=== PATIENT | female | born 1940 | race Caucasian/White ===

== ENCOUNTER 2023-11-21 15:26 | Emergency (ER) | payer MEDICARE, OTHER, SELFPAY ==
--- NOTE | ~2023-11-21 | XR_ITS ---
EXAMINATION: XR wrist RT min 3V DATE: 11/21/2023 15:50 INDICATION: Right wrist deformity post fall TECHNIQUE: Posteroanterior, ulnar deviation, oblique, and lateral views of the right wrist were obtai noe. COMPARISON: none FINDINGS: Diffuse osteopenia. Comminuted fractures of the distal right radius with 2 mm posterior displacement and moderate posterior angulation resulting in 35 degrees dorsal tilt of the distal articular surface at the transverse fracture across the metaphyseal region. There is a subtle linear lucency consisten t with nondisplaced intra-articular fracture plane extending to the scaphoid fossa. Minimally displac ed extra-articular fracture at the neck of the distal ulna. No other fractures identified. Advanced o steoarthritis at the first carpometacarpal joint. Moderate osteoarthritis at the triscaphe joint and several of the remaining metacarpophalangeal and interphalangeal joints. IMPRESSION: 1. Prominent dorsal angulation of a comminuted intra-articular fracture of the distal right radius wi th no significant fracture gap or incongruity at the articular surface. 2. Minimally displaced extra articular fracture at the neck of the distal ulna. 3. 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 Reviewed, dictated and finalized at location A. SUPERVISOR IMPRESSION: 1. Prominent dorsal angulation of a comminuted intra-articular fracture of the distal right radius with no significant fracture gap or incongruity at the tae cular surface. 2. Minimally displaced extra articular fracture at the neck of the distal ulna. 3. 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
--- NOTE | ~2023-11-21 | XR_ITS ---
EXAM: XR wrist RT 2V DATE: 11/21/2023 20:33 HISTORY: post reduction . COMPARISON: Same date at 3:48 PM. FINDINGS: Cast material obscures osseous detail. Severe osteopenia. Redemonstration of the comminute d intra-articular distal right radial fracture, improved alignment, residual 2 mm posterior displacem ent and 7 degree posterior angulation. Redemonstration of the extra-articular distal right ulnar frac ture, with minimal medial and posterior angulation IMPRESSION: Distal right radial and ulnar fractures status post reduction and cast placement. There i s mild residual posterior displacement and angulation of the radial fracture. Reviewed, dictated and finalized at location K. TO PEELER IMPRESSION: Distal right radial and ulnar fractures status post reduction and c ast placement. There is mild residual posterior displacement and angulation of the radial fracture.
[2023-11-21 15:28] VITALS: BP 127/100; PULSE 68; RESP 18; TEMP 37; O2SAT 94
--- NOTE | 2023-11-21 18:15 | ED.UPPEXIN ---
HPI - Extremity Injury (Upper) General Chief Complaint: Extremity Injury, Upper Stated Complaint: wrist pain Time Seen by Provider: 11/21/23 18:01 History of Present Illness HPI narrative: 83-year-old female presents with his daughter at bedside for right wrist pain and injury. Patient states she bent over to pick something up off of the ground and when she stood up she took a few steps back, tripped and fell backwards. States she landed on her bottom with her right wrist extended behind her. Denies hitting her head, loss of consciousness, neck pain or back pain, other injuries acquired. Related Data Home Medications Medication Instructions Recorded Confirmed apixaban 5 mg tablet (Eliquis) mg 11/21/23 furosemide 20 mg tablet mg 11/21/23 metoprolol tartrate 25 mg tablet mg 11/21/23 montelukast 10 mg tablet mg 11/21/23 pantoprazole 20 mg tablet,delayed mg PO 11/21/23 release paroxetine HCl 20 mg tablet mg PO 11/21/23 potassium chloride 10 mEq meq PO 11/21/23 tablet,extended release sacubitril 24 mg-valsartan 26 mg tablet 11/21/23 tablet (Entresto) simvastatin 40 mg tablet mg 11/21/23 Allergies Allergy/AdvReac Type Severity Reaction Status Date / Time Penicillins Allergy Unknown Hives Verified 11/21/23 15:27 Sulfa (Sulfonamide Allergy Unknown Hives Verified 11/21/23 15:27 Antibiotics) Review of Systems Review of Systems: CONSTITUTIONAL: Denies fever, chills, or sweats. EYES: Denies visual changes, redness, or discharge. ENT: Denies rhinorrhea, congestion, sore throat, or otalgia. CARDIOVASCULAR: Denies chest pain, palpitations, or edema. RESPIRATORY: Denies cough or dyspnea. GASTROINTESTINAL: Denies abdominal pain, nausea, vomiting, or diarrhea. GENITOURINARY: Denies dysuria or hematuria. SKIN: Denies rash or itching. MUSCULOSKELETAL: Lilian HPI NEUROLOGIC: Denies headache, numbness, or weakness. PSYCHIATRIC: Denies anxiety or depression. Exam Narrative: GENERAL: Well-appearing, well-nourished, and in no acute distress. HEAD: Normocephalic, atraumatic. EYES: PERRLA and EOMI. ENT: Nares clear, no rhinorrhea or epistaxis. Mucous membranes moist. NECK: Supple. No midline cervical spinous tenderness, step-offs or deformities. BACK: No midline thoracolumbar spinous tenderness, step-offs or deformities. CHEST: Clear to auscultation. No respiratory distress. HEART: Regular rate and rhythm. No murmur heard. Normal peripheral pulses. ABDOMEN: Soft, nontender, nondistended, normal active bowel sounds. EXTREMITIES: RUE: Tenderness and obvious deformity to the distal radius and ulna with dorsal angulation. No tenderness to metacarpals or fingers. Negative snuffbox tenderness. Patient able to move all fingers and sensation intact throughout. Radial pulse 2 +. Cap refill less than 2. No tenderness remainder of upper lower extremities bilaterally. SKIN: Warm, dry, no rash. NEURO: No focal deficits. Alert and oriented x3 Course Vital Signs Vital signs: Vital Signs Temperature 98.6 F 11/21/23 15:28 Pulse Rate 68 11/21/23 15:28 Respiratory Rate 18 11/21/23 15:28 Blood Pressure 127/100 H 11/21/23 15:28 Pulse Oximetry 94 11/21/23 15:28 Oxygen Delivery Room Air 11/21/23 15:28 Temperature 98.6 F 11/21/23 15:28 Pulse Rate 85 11/21/23 21:41 Respiratory Rate 16 11/21/23 21:41 Blood Pressure 137/86 11/21/23 21:41 Pulse Oximetry 97 11/21/23 21:41 Oxygen Delivery Room Air 11/21/23 15:28 Procedures Orthopedic Fracture Reduction Fracture #1: Fracture Reduction date: 11/21/23 Fracture Reduction time: 20:32 Time Out Performed: Yes Side: right Fracture Reduction Location: radius and ulna Analgesia: hematoma block Pre-Procedure Neuro Vascular Exam: normal Technique: direct manipulation Post Reduction X-rays Demonstrate: acceptable reduction Post-reduction neuro exam: intact Post-reductio
--- NOTE | 2023-11-21 19:10 | PC.NURSE ---
Assumed care of pt. Awaiting reduction. No needs at this time.
--- NOTE | 2023-11-21 21:40 | PC.NURSE ---
Pt declined Tramadol dose. States is not in pain at this time. Discussed pharmaceutical and nonpharmaceutical ways to help pain until pharmacy opens.
[2023-11-21 21:41] VITALS: BP 137/86; PULSE 85; RESP 16; O2SAT 97
== END 2023-11-21 21:42 | disposition home or self-care (01) ==
PROVIDERS: Emergency Provider Physician Assistant
DX: S52.571A Other intraarticular fracture of lower end of right radius, initial encounter for closed fracture (principal); S52.691A Other fracture of lower end of right ulna, initial encounter for closed fracture; Z79.01 Long term (current) use of anticoagulants; W01.0XXA Fall on same level from slipping, tripping and stumbling without subsequent striking against object, initial encounter
CPT/HCPCS: 25565; 25605; 73100; 73110; 99285; A4565

== ENCOUNTER 2023-12-11 08:52 | Emergency (ER) | payer MEDICARE, OTHER, SELFPAY ==
[2023-12-11] VITALS (37 sets, daily range): BP systolic 49–124; BP diastolic 20–98; PULSE 0–160; RESP 9–48; TEMP 36.4–37.2; O2SAT 70–100
--- NOTE | ~2023-12-11 | CT_ITS ---
EXAMINATION: CT chest abdomen pelvis w con DATE: 12/11/2023 12:04 INDICATION: Sepsis TECHNIQUE: Computed tomography (CT) of the chest, abdomen, and pelvis was performed with 100 CC Omnip aque 350 intravenous contrast. Automated exposure control and iterative reconstruction technique were employed. Exam dose: 911.73 mGy-cm total exam DLP. COMPARISON: 12/11/2023 portable AP chest FINDINGS: CHEST CT: There is prominent cardiomegaly. No pericardial effusion. There is thoracic aortic, great vessel and coronary artery calcification. No thoracic aortic aneurysm. No hilar or mediastinal mass lesion or lymphadenopathy is evident. There is dependent infiltrate or atelectasis at the left upper lobe and prominent left lower lobe ate lectasis/infiltrate. There is dependent right lower lobe atelectasis. Mild bilateral pleural effusions. Very large hiatal hernia. ABDOMEN/PELVIS CT: Status post cholecystectomy. No bile duct or pancreatic duct dilatation. Pancreatic atrophy. No pancr eatic mass lesion or calcification. No hepatic or splenic space-occupying mass lesion is detected. Normal morphology of the adrenal glands. Mild right adrenal gland calcification. There are several cy sts of each kidney are noted including one larger exophytic cyst in particular at the left kidney pos teriorly, measuring up to 3.3 cm. No urinary tract calculus or hydroureteronephrosis. There is a James catheter within the completely e vacuated urinary bladder. The uterus and adnexal areas appear unremarkable. Atherosclerotic calcification but normal caliber of the abdominal aorta and iliac arteries. There is a catheter in the right femoral vein, terminating in the right external iliac vein No intraperitoneal or retroperitoneal or pelvic mass lesion or adenopathy or ascites. Diverticulosis of the colon. There is prominent fecal material in the colon. No bowel obstruction, jarad wel wall thickening, pneumatosis or intraperitoneal free air.. Prominent osteoarthritis at the glenohumeral joints. Prominent degenerative disc disease at the included C5-6 and C6-7. Approximate 4 mm anterolisthesis a t C6-7. Dextroscoliosis of the thoracic spine and levoscoliosis of the lumbar spine. Mild likely chronic anterior wedging at T3 Severe burst fracture deformity at T12. Moderate biconcave compression deformity and vertebroplasty at L5. Multilevel degenerative disc disease, most pronounced at L2-3 and L3-4. Prominent degenerative change at the lumbar apophyseal joints. Osteopenia. Intramedullary pin and interlocking compression screw of proximal left femur. IMPRESSION: Prominent cardiomegaly Dependent left upper lobe and right lower lobe infiltrate or atelectasis. More prominent left lower l obe infiltrate and/or atelectasis Mild bilateral pleural effusions Very large hiatal hernia Status post cholecystectomy Bilateral renal cysts Severe burst fracture deformity at T12 Mild anterior wedge compression fracture T3 Moderate biconcave compression fracture and vertebroplasty at L5 Reviewed, dictated and finalized at [facility]. Reviewed, dictated and finalized at location A. IMPRESSION: Prominent cardiomegaly Dependent left upper lobe and right lower lobe infiltrate or atelectasis. More prominent left lower lobe infiltrate and/or atelectasis Mild bilateral pleural effusions Very large hiatal hernia Status post cholecystectomy Bilateral renal cysts Severe burst fracture deformity at T12 Mild anterior wedge compression fracture T3 Moderate biconcave compression fracture and vertebroplasty at L5
--- NOTE | ~2023-12-11 | CT_ITS ---
EXAMINATION: CT brain wo con DATE: 12/11/2023 12:04 INDICATION: Confusion, sepsis TECHNIQUE: Computed tomography (CT) of the head was performed without intravenous contrast. The mA wa s adjusted according to patient size. Iterative reconstruction technique was employed. Exam dose: 10 59.33 mGy-cm total exam DLP. COMPARISON: None FINDINGS: Examination is very limited due to prominent motion artifact. No apparent intracranial mass lesion or hemorrhage, midline shift or mass effect or subdural or epidu ral hematoma is detected. Bilateral hyperostosis frontalis interna, not likely of clinical significan ce. No skull fracture or bone destruction is evident. The mastoid air cells and paranasal sinuses patricia ear well-developed and aerated. IMPRESSION: Limited examination due to motion artifact; no gross acute intracranial finding Reviewed, dictated and finalized at [facility]. Reviewed, dictated and finalized at location A. IMPRESSION: Limited examination due to motion artifact; no gross acute intracr anial finding
--- NOTE | ~2023-12-11 | XR_ITS ---
XR chest 1V portable DATE: 12/11/2023 09:09 INDICATION: Altered mental status. History of COPD and hypertension. TECHNIQUE: Portable AP chest on 12/11/2023 at 0907 hours COMPARISON: 09/03/2013 two-view chest FINDINGS: This is a limited rotated single portable AP view. Cardiomegaly. Aortic arch calcification. There is increased retrocardiac density consistent with left lower lobe atelectasis/or consolidation. There is patchy infiltrate and/or atelectasis in the right lower lung. Left costophrenic angle is obscured. Left pleural effusion is not excluded. Cannot exclude of small r ight pleural effusion. Pulmonary vascular redistribution may indicate mild pulmonary venous hypertension. Prominent diffuse osteopenia. Osteoarthritic change at both glenohumeral joints. IMPRESSION: Cardiomegaly, aortic atherosclerosis Bilateral lower lung infiltrate and/atelectasis, left greater than right Possible pleural effusions, also likely greater on the left Reviewed, dictated and finalized at location A.
--- NOTE | 2023-12-11 09:07 | ECG_ITS ---
Measurements Intervals [place] Rate: 146 P: [place]: 0 QRS: 120 QRSD: 90 T: 54 QT: 296 QTc: 462 Interpretive Statements ATRIAL FIBRILLATION WITH RAPID VENTRICULAR RESPONSE VENTRICULAR PREMATURE COMPLEX ST-T WAVE ABNORMALITY IN LATERAL LEADS- CONSIDER ISCHEMIA BASELINE ARTIFACT- I, III, AVR, AVF, V1-V ABNORMAL ECG NO PREVIOUS ECG AVAILABLE FOR COMPARISON Electronically Signed On 12-11-2023 15:06:07 CDT by Timothy Ibrahim D.O.
[2023-12-11] MEDS: SODIUM CHLORIDE 0.9% IV 2,000 ML/1,000 ML BAG 999 ML IV CONT (09:39)
[2023-12-11] MEDS: MIDAZOLAM HCL (*CRX) 2 MG/2 ML VIAL (09:41)
--- NOTE | 2023-12-11 09:43 | ED.GENADULT ---
HPI - General Adult General Chief complaint: Altered Mental Status Stated complaint: lethargy, weakness, ams History of Present Illness HPI narrative: 83 years old white female came from home by ambulance with general weakness lethargy started 1 week ago, got worse over the last 10 hours. Patient is DNR, history of AFib on Eliquis, mitral valve regurgitation, asthma, CHF, right forearm fracture status post cast placement November 23, 2023. On arrival to the ED patient have oxygen by nasal cannula, 2 L, restless, hallucinating, saying months since, monitor showing AFib with RVR between 130 up to 178, blood pressure 70/35, diffuse blue discoloration of the tips of the fingers and toes, cold skin Related Data Home Medications Medication Instructions Recorded Confirmed apixaban 5 mg tablet (Eliquis) mg 11/21/23 11/28/23 furosemide 20 mg tablet mg 11/21/23 11/28/23 metoprolol tartrate 25 mg tablet mg 11/21/23 11/28/23 montelukast 10 mg tablet mg 11/21/23 11/28/23 pantoprazole 20 mg tablet,delayed mg PO 11/21/23 11/28/23 release paroxetine HCl 20 mg tablet mg PO 11/21/23 11/28/23 potassium chloride 10 mEq meq PO 11/21/23 11/28/23 tablet,extended release simvastatin 40 mg tablet mg 11/21/23 11/28/23 ascorbate calcium (vitamin C) 500 500 mg PO DAILY 11/23/23 11/28/23 mg tablet prednisone 5 mg tablet 5 mg PO DAILY 11/23/23 11/28/23 sacubitril 24 mg-valsartan 26 mg 1 tablet PO BID 11/23/23 11/28/23 tablet Allergies Allergy/AdvReac Type Severity Reaction Status Date / Time Penicillins Allergy Unknown Hives Verified 11/23/23 08:31 Sulfa (Sulfonamide Allergy Unknown Hives Verified 11/23/23 08:31 Antibiotics) Review of Systems Review of Systems: ROS unobtainable: Yes unobtainable due to medical condition and unobtainable due to mental status PMFSH Past Medical History Medical History COPD (chronic obstructive pulmonary disease) History of bruising easily History of heart attack Hypertension Osteoporosis Surgical History Surgical History History of bilateral knee replacement History of left hip replacement Family History Family History Other Asthma COPD (chronic obstructive pulmonary disease) Social History Social History Smoking status: Never smoker Alcohol intake: current Substance use: never Do You Feel Safe in your Home?: Yes Lack of Transportation: No Lack of Food: Never True Current Housing: I Have Housing Concerned About Future Housing: No Difficulty Paying Gas/Electric Bills: No Difficulty Paying for Meds: No Currently Unemployed: No Education: High School Diploma/GED Difficulty w/ Childcare or Family Care: No Exam Narrative: General appearance: Well-developed, well-nourished Skin: Cold, pale, bluish discoloration of the tips of fingers and toes mainly right fingers Head: Normocephalic, nontraumatic Eyes: Clear conjunctiva ENT: Dry oral cavity Neck: Supple, nontender Chest and respiratory: Airway patent, hyperventilation Heart: Tachycardia, irregular irregularity Abdomen: Soft, nontender, no organomegaly, quiet bowel sounds Vascular: Poor peripheral circulation Musculoskeletal: Moving all over the bed, not following verbal commands Neurologic: Confuse, saying nonsense Course Vital Signs Vital signs: Vital Signs Pulse Rate 158 H 12/11/23 08:42 Respiratory Rate 30 H 12/11/23 08:42 Blood Pressure 70/59 L 12/11/23 08:42 Pulse Oximetry 88 L 12/11/23 08:42
[2023-12-11 10:12] LABS: Influenza A QL RT-PCR Negative (Negative); Influenza B QL RT-PCR Negative (Negative); SARS-CoV-2 RNA PCR Negative (Negative)
[2023-12-11 10:18] LABS: Basophils Percent Auto 0.3 % (0.2-1.2); Eosinophils Percent Auto 0.1 % (0-4.4); Hematocrit 36.2 % (37.0-47.0); Immature Granulocyte Absolute 0.09 K/mm3 (0.00-0.031); Immature Granulocyte Percent A 0.6 % (0-0.5); Lymphocytes Absolute Auto 0.85 K/mm3 (0.9-3.2); Mean Corpuscular HGB Conc 27.6 g/dl (32-36); Mean Corpuscular Hemoglobin 24.4 pg (26-34); Mean Corpuscular Volume 88.5 fl (80-100); Mean Platelet Volume 12.2 fl (7.4-10.4); Monocytes Absolute Auto 0.7 K/mm3 (0.1-0.6); Monocytes Percent Auto 4.6 % (2.6-8.5); Neutrophils Absolute Auto 12.6 K/mm3 (1.3-6.7); Neutrophils Percent Auto 88.4 % (45.5-73.1); Nucleated Red Blood Cells Perc 7.1 % (0.0-0.2); Platelet Count Result 192 k/mm3 (150-375); Red Blood Count 4.09 M/mm3 (4.2-5.4); Red Cell Distribution Width 19.9 % (11.5-14.5); White Blood Count 14.3 K/mm3 (4.5-10.0)
[2023-12-11] MEDS: NOREPINEPHRINE 8 MG/D5W 250 ML 8 MG/250 ML BAG 9.38 MG IV CONT (10:20)
[2023-12-11 10:24] LABS: Appearance Urine Cloudy (Clear); Bacteria Urine 4+ /hpf; Bilirubin Urine Negative (Negative); Blood Urine Negative (Negative); Color Urine Dark Yellow (Yellow); Glucose Urine UA Negative (Negative); Ketones Urine Trace mg/dL (Negative); Leukocyte Esterase Ur 1+ LEU/UL (Negative); Need Manual Microscopic Reviewed; Nitrate Urine Negative (Negative); Protein Urine 1+ mg/dL (Negative); RBC Urine 0-2 /hpf (0-2); Specific Grav Ur 1.022 (1.001-1.035); Squamous Epithelial Cell Urine None seen /hpf (Few)
[2023-12-11 10:27] LABS: Lactic Acid Reflex 10.5 mmol/L (0.7-2.0)
[2023-12-11] MEDS: AZTREONAM 1 GM in SODIUM CHLORIDE 0.9% IV 50 ML 100 ML IVPB (10:27)
[2023-12-11 10:28] LABS: Anisocytosis 1+ (NORMAL); Hypochromasia 2+ (NORMAL); Platelet Estimate Adequate (Adequate); Schistocytes None Seen (NORMAL)
[2023-12-11 10:29] LABS: INR 4.2; Prothrombin Time 44.2 Seconds (11.1-14.7)
[2023-12-11 10:29] LABS: Add Urine Microscopic? YES
[2023-12-11 10:30] LABS: Alanine Aminotransferase 50 U/L (6-35); Albumin Level 2.7 g/dL (3.5-5.1); Alkaline Phosphatase 87 U/L (38-126); Anion Gap 13 mmol/L (8-16); Aspartate Amino Transferase 33 U/L (14-36); Bilirubin,Total 3.2 mg/dL (0.2-1.3); Blood Urea Nitrogen 44 mg/dL (7-17); CRP 4.6 mg/dL (<1.0); Calcium 8.9 mg/dL (8.4-10.2); Carbon Dioxide 17 mmol/L (22-30); Chloride 111 mmol/L (98-107); Estimated CRCL calculation 24 ml/min; Estimated Glomerular Filt Rate 36; Glucose 33 mg/dL (65-110); Partial Thromboplastin Time 35.4 SECONDS (22.3-36.8); Potassium 4.4 mmol/L (3.4-5.0); Sodium 141 mmol/L (137-145)
[2023-12-11] MEDS: DEXTROSE 50% 25 GM/50 ML SYRINGE ×3 (10:35→11:20)
--- NOTE | 2023-12-11 10:35 | PC.NURSE ---
BLOOD GLUCOSE FROM LAB IS 33 VORB FOR AMP D50 TO BE GIVEN TO PT FROM DR SLOAN
[2023-12-11 10:39] LABS: NT Pro B Type Natriuretic Pept 23300 pg/mL (19.9-100); Troponin I 0.097 ng/mL (0.000-0.034)
--- NOTE | 2023-12-11 10:47 | PC.NURSE ---
0919 2 mg of Midazolam give IV push co cardioversion r/t a-fib and HR 140 0920 pt shock with 100J HR 104 BP 56/47
[2023-12-11 10:50] LABS: Alveolar/Arterial O2 Gradient 508.7 mmHg; Base Excess ABG -15.3 mEq/l (+/-2.0); Fractional Inspired Oxygen 100 %; HCO3 ABG 13.9 mEq/l (22.0-26.0); Oxygen Saturation ABG 98.3 % (95.0-100.0); Oxyhemoglobin 95.1 % THb (90.0-100.0); PCO2 ABG 46.9 mmHg (35.0-45.0); PO2 ABG 157.4 mmHg (80.0-100.0); PO2 FiO2 Ratio Arterial Blood 1.57 %; Total Hemoglobin 10.2 g/dL (12.0-18.0)
[2023-12-11 10:52] LABS: Device NON-REBREATHER MASK; Site Drawn RIGHT BRACHIAL
--- NOTE | 2023-12-11 11:13 | PC.NURSE ---
BG 10 vorb for amp of d50 and d10 @ 100/hr from dr rubio
[2023-12-11 11:15] LABS: Glucose Point of Care < 20 mg/dl (65-105)
[2023-12-11] MEDS: DEXTROSE 10% 500 ML 100 ML (11:21)
[2023-12-11 12:04] LABS: Glucose Point of Care 135 mg/dl (65-105)
[2023-12-11 12:16] LABS: MRSA (PCR) NOT DETECTED (NOT DETECTE)
[2023-12-11] MEDS: SODIUM BICARBONATE 8.4% 50 MEQ/50 ML SYRINGE IV PUSH ×2 (12:30→12:31)
[2023-12-11] MEDS: levoFLOXacin 750 MG/D5W 150 ML 750 MG/150 ML BAG 100 MG IVPB (12:44)
[2023-12-11 13:01] LABS: Troponin I 0.172 ng/mL (0.000-0.034)
[2023-12-11 13:13] LABS: Reflex Lactic Acid Yes or No Add Lactic
[2023-12-11 13:20] LABS: Alveolar/Arterial O2 Gradient 582.4 mmHg; Base Excess ABG -13.1 mEq/l (+/-2.0); Fractional Inspired Oxygen 100 %; HCO3 ABG 19.3 mEq/l (22.0-26.0); PO2 FiO2 Ratio Arterial Blood 0.38 %; Total Hemoglobin 9.2 g/dL (12.0-18.0)
[2023-12-11 13:33] LABS: pH ABG 6.939 (7.350-7.450)
[2023-12-11 13:34] LABS: PCO2 ABG 92.3 mmHg (35.0-45.0)
[2023-12-11 13:35] LABS: Oxygen Saturation ABG 42.6 % (95.0-100.0); PO2 ABG 38.3 mmHg (80.0-100.0)
[2023-12-11 13:36] LABS: Device NON-REBREATHER MASK; Oxyhemoglobin 38.2 % THb (90.0-100.0); Site Drawn RIGHT RADIAL
--- NOTE | 2023-12-11 13:52 | PC.NURSE ---
1330 0.5mg of Atropine given per verbal order by Dr. Jeremie CARSON. Pt decreased HR 47 and respirations. EDP and family present in the room.
--- NOTE | 2023-12-11 14:59 | ECG_ITS ---
Measurements Intervals [place] Rate: 100 P: [place]: 0 QRS: 105 QRSD: 105 T: 8 QT: 389 QTc: 503 Interpretive Statements ATRIAL FIBRILLATION WITH RAPID VENTRICULAR RESPONSE VENTRICULAR COUPLET AND VENTRICULAR PREMATURE COMPLEXES LOW VOLTAGE- LIMB LEADS BORDERLINE R WAVE PROGRESSION, ANTERIOR LEADS BORDERLINE ST-T WAVE ABNORMALITY- DIFFUSE LEADS BASELINE ARTIFACT- I, II, III, AVR, AVL, AVF, V1-V4 ABNORMAL ECG COMPARED TO ECG 12/11/2023 08:47:52 HEART RATE HAS DECREASED Electronically Signed On 12-11-2023 15:14:27 CDT by Timothy Ibrahim D.O.
== END 2023-12-11 16:03 | disposition expired ==
PROVIDERS: Emergency Provider Emergency Medicine
DX: A41.9 Sepsis, unspecified organism (principal); J18.9 Pneumonia, unspecified organism; E87.20 Acidosis, unspecified; E16.2 Hypoglycemia, unspecified; R79.1 Abnormal coagulation profile; Z20.822 Contact with and (suspected) exposure to COVID-19; I48.91 Unspecified atrial fibrillation; J44.9 Chronic obstructive pulmonary disease, unspecified; I25.2 Old myocardial infarction; I50.9 Heart failure, unspecified; I11.0 Hypertensive heart disease with heart failure; I34.0 Nonrheumatic mitral (valve) insufficiency; M81.0 Age-related osteoporosis without current pathological fracture; Z66 Do not resuscitate; Z96.653 Presence of artificial knee joint, bilateral; Z96.642 Presence of left artificial hip joint; Z79.01 Long term (current) use of anticoagulants; I49.3 Ventricular premature depolarization; R94.31 Abnormal electrocardiogram [ECG] [EKG]; I51.7 Cardiomegaly; K44.9 Diaphragmatic hernia without obstruction or gangrene; Z90.49 Acquired absence of other specified parts of digestive tract; N28.1 Cyst of kidney, acquired; R00.8 Other abnormalities of heart beat; S22.081A Stable burst fracture of T11-T12 vertebra, initial encounter for closed fracture; X58.XXXA Exposure to other specified factors, initial encounter
CPT/HCPCS: 36415; 36556; 36600; 70450; 71045; 71260; 74177; 80053; 81001; 82805; 82948; 83605; 83880; 84484; 85025; 85610; 85730; 86140; 87040; 87077; 87086; 87088; 87147; 87181; 87186; 87636; 87641; 93005; 96365; 96366; 96367; 96368; 96375; 96376; 99291; C1751; J0457; J0461; J1956; J2250; J7030; Q9967